=== PATIENT | female | born 1970 | race Hispanic/Latino ===

== ENCOUNTER 2018-02-26 18:14 | Emergency (ER) | payer OTHER ==
[~2018-02-26] VITALS: Ht 154.9 cm; Wt 82.6 kg
[~2018-02-26 18:14] MED LIST: HYDROCHLOROTHIA25 MG PO; LOSARTAN POTASS25 MG PR; METFORMIN HCL1000 MG PO; VICTOZA 2-0.6 MG/0.1
[2018-02-26 18:36] LABS: BASOPHILS % 0.4 % (0.0-1.0); EOSINOPHILS # (AUTO) 0.3 (0.0-0.4); EOSINOPHILS % 2.7 % (0.0-6.0); HEMATOCRIT 46.7 % (34.2-44.1); HEMOGLOBIN 15.3 g/dL (12.0-16.0); LYMPHOCYTES # (AUTO) 4.2 (1.0-3.2); LYMPHOCYTES % 42.9 % (18.0-39.1); MEAN CORPUSCULAR HEMOGLOBIN 28.2 pg (28-32); MEAN CORPUSCULAR HGB CONC 32.8 g/dL (31-35); MONOCYTES # (AUTO) 0.5 (0.2-0.8); MONOCYTES % 5.2 % (4.4-11.3); NEUTROPHILS # (AUTO) 4.8 (2.1-6.9); NEUTROPHILS % 48.5 % (38.7-80.0); PLATELET COUNT 225 x10e3/uL (140-360); RED BLOOD COUNT 5.43 x10e6/uL (3.6-5.1); RED CELL DISTRIBUTION WIDTH 12.7 % (11.7-14.4)
[2018-02-26 18:44] LABS: PARTIAL THROMBOPLASTIN TIME 25.1 seconds (23.8-35.5); PROTHROMBIN TIME 12.4 seconds (11.9-14.5)
[2018-02-26 18:55] LABS: ALANINE AMINOTRANSFERASE 40 IU/L (0-55); ALBUMIN 3.8 g/dL (3.5-5.0); ALBUMIN/GLOBULIN RATIO 1.1 (0.8-2.0); ALKALINE PHOSPHATASE 109 IU/L (40-150); ANION GAP 13.6 mmol/L (8-16); BLOOD UREA NITROGEN 11 mg/dL (7-26); BUN/CREATININE RATIO 14 (6-25); CALCIUM 9.8 mg/dL (8.4-10.2); CARBON DIOXIDE 28 mmol/L (22-29); CHLORIDE 99 mmol/L (98-107); CREATINE KINASE 51 IU/L (29-168); CREATININE, SERUM 0.79 mg/dL (0.57-1.11); EST GLOMERULAR FILTRATION RATE > 60 ML/MIN (60-); GLUCOSE 304 mg/dL (74-118); POTASSIUM 3.6 mmol/L (3.5-5.1); SODIUM 137 mmol/L (136-145)
[2018-02-26 19:15] LABS: BILIRUBIN,URINE NEGATIVE (NEGATIVE); CLARITY,URINE CLEAR (CLEAR); COLOR,URINE YELLOW (YELLOW); KETONES,URINE NEGATIVE (NEGATIVE); LEUKOCYTE ESTERASE ,URINE NEGATIVE (NEGATIVE); NITRITE,URINE NEGATIVE (NEGATIVE); PROTEIN,URINE DIPSTICK NEGATIVE (NEGATIVE); URINE UROBILINOGEN 0.2 mg/dL (0.2 - 1)
--- NOTE | 2018-02-26 19:43 | Diagnostic Imaging Report ---
EXAMINATION: Head CT without contrast. HISTORY:Left-sided numbness and weakness. COMPARISON:None. TECHNIQUE: Multidetector axial images were obtained from the foramen magnum to the vertex without contrast. The images were reconstructed using brain and bone algorithms. Thin section brain images were reformatted into coronal and sagittal planes. Intravenous contrast: None IMAGE QUALITY: Acceptable. FINDINGS: Skull/scalp: No lytic or blastic. lesions. No surgical changes. Parenchyma: No abnormal density. No acute hemorrhage, mass or acute major vascular territorial infarct. Arteries: No density suggestive of thrombosis. Dural sinuses: No abnormal density suggestive of thrombosis. Ventricles: No hydrocephalus or displacement. Extra-axial spaces: No abnormal density. Brain volume: Normal for age. Craniocervical junction: No mass, Chiari malformation, or basilar invagination. Sella: No mass. Paranasal/mastoid sinuses: Imaged portions unremarkable. IMPRESSION: No intracranial abnormality. Signed by: Dr. Jessica Landry M.D. on 02/26/2018 7:39 PM
[2018-02-26] MEDS ORDERED: INSULIN REGULAR, HUMAN 100 UNIT/1 ML 3ML VIAL SQ ONE (19:45)
--- NOTE | 2018-02-26 20:00 | Diagnostic Imaging Report ---
EXAMINATION: PA and lateral views of the chest. COMPARISON: None CLINICAL HISTORY: Left facial arm and leg weakness DISCUSSION: Lines/tubes: None. Lungs: The lungs are well inflated and clear. There is no evidence of pneumonia or pulmonary edema. Pleura: There is no pleural effusion or pneumothorax. Heart and mediastinum: Cardiomediastinal silhouette is unremarkable. Pulmonary vasculature is normal. Bones and soft tissues: No acute bony abnormalities. Degenerative changes in the thoracic spine IMPRESSION: No acute cardiopulmonary abnormalities. Signed by: Dr. Jose Vernon M.D. on 02/26/2018 7:56 PM
[2018-02-26 20:42] VITALS: BP 109/77
== END 2018-02-26 21:11 | disposition home or self-care (01) ==
LOC: ER 18:14
DX: R20.2 Paresthesia of skin (principal); R53.1 Weakness
CPT/HCPCS: 36415; 70450; 71046; 80053; 81001; 82550; 82553; 84484; 84702; 85025; 85610; 85730; 93005; 99284

== ENCOUNTER 2019-02-08 11:32 | Emergency (ER) | payer OTHER ==
[~2019-02-08] VITALS: Ht 154.9 cm; Wt 82.6 kg
--- OUTSIDE RECORDS SUMMARY | 2019-02-08 11:36 | XMS REPORT | Clinical Summary ---
Author Author SELIN Squrl [facility] Address Unknown Phone Unavailable Care Team Providers Care Hr Coordinator Name Role Phone Davida Rivera PCP Unavailable Allergies Comments Active Allergy Reactions Severity Noted Date dizziness Benazepril Hcl Other (See Low 09/12/2014 Comments) Pt developed itching on both arms, upper chest, tongue and lips after CT scan with contrast Iodine Itching Low 05/02/2017 cough Lisinopril Other (See Low 09/12/2014 Comments) Medications End Date Status Medication Sig Dispensed Refills Start Date Active losartan-hydrochlorothiaz Take 1 tablet 0 rodrigo (HYZAAR) 100-12.5 mg by mouth per tablet daily. Active cloNIDine HCl (CATAPRES) Take 0.2 mg 0 0.2 MG tablet by mouth 2 (two) times daily as needed . Active fluticasone (FLONASE) 50 1 spray by 0 mcg/actuation nasal spray Nasal route daily as needed . Active metFORMIN (GLUCOPHAGE) Take 1,000 mg 0 1000 MG tablet by mouth daily with breakfast . Active atorvastatin (LIPITOR) 40 Take 40 mg by 0 MG tablet mouth daily. Active liraglutide 0.6 mg/0.1 mL Inject 1.8 mg 0 (18 mg/3 mL) PnIj subcutaneousl y daily. Active insulin glargine Inject 60 0 (BASAGLAR KWIKPEN U-100 Units INSULIN) 100 unit/mL (3 subcutaneousl mL) InPnIndications: y 2 (two) Basagar insulin times daily. Active ticagrelor (BRILINTA) 90 Take 1 tablet 180 tablet 3 01/08/201 mg Tab tablet (90 mg total) 9 by mouth 2 (two) times daily. Active aspirin 81 MG EC tablet Take 1 tablet 90 tablet 3 (81 mg total) 9 by mouth daily. 01/08/2020 Active metoprolol (TOPROL-XL) 25 Take 1 tablet 90 tablet 3 MG 24 hr tablet (25 mg total) 9 by mouth daily. Active meloxicam (MOBIC) 15 MG Take 15 mg by 0 tablet mouth every 9 night as needed for Pain Take 0.5-1 tablets. Active linagliptin (TRADJENTA) 5 Take 5 mg by 0 mg Tab mouth daily. 8 Active traMADol (ULTRAM) 50 mg Take 50 mg by 0 tablet mouth every 6 7 (six) hours as needed. Active blood sugar diagnostic 1 each by 0 (GLUCOSE BLOOD) Strp Other - See 7 Admin Instructions route 2 (two) times daily. Active blood-glucose meter kit 1 each by 0 Other - See 7 Admin Instructions route 2 (two) times daily. Active pen needle, diabetic (BD Inject 1 0 ULTRA-FINE SHORT PEN applicator 8 NEEDLE) 31 gauge x 5/16" subcutaneousl Ndle y 2 (two) times daily. Active nitroglycerin (NITROSTAT) Place 0.3 mg 0 0.3 MG SL tablet under the 9 tongue as needed. 12/25/2018 Discontinued amLODIPine (NORVASC) 10 Take 20 mg by 0 MG tablet mouth daily. 12/25/2018 Discontinued insulin glargine (LANTUS) Inject 20 0 100 unit/mL injection Units subcutaneousl y nightly. Use as directed 12/25/2018 Discontinued glipiZIDE (GLUCOTROL) 5 Take 5 mg by 0 MG tablet mouth once in evening. 01/07/2019 Discontinued insulin glargine (LANTUS) Inject 60 0 100 unit/mL injection Units subcutaneousl y 2 (two) times daily Use as directed . 01/07/2019 Discontinued glipiZIDE (GLUCOTROL) 5 Take 1 tablet 30 tablet 1 MG tablet (5 mg total) 9 by mouth once in evening. 01/07/2019 Discontinued insulin detemir U-100 Inject 20 6 mL 0 (LEVEMIR) 100 unit/mL Units 9 injection subcutaneousl y nightly for 30 days. 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); Type 2 diabetes mellitus with hyperglycemia, with long-term current use of insulin ([facility]) 01/12/2019 Emergency Cardiology - 01/13/2019 01/12/2019 Travel Jack Nielsen MD L CATH & CORONARY ANGIOS 01/07/2019 Surgery Jack Nielsen MD Abnormal stress test (Primary Dx); 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); S/P drug eluting coronary stent placement; Chest pain, unspecified type 01/07/2019 Hospital Cardiology - Encounter 01/08/2019 Alex Minaya MD Pathak, Yashash D Asim, Amna, MD Chest pain, unspecified type (Primary Dx); Hypertension, unspecified type; History of diabetes mellitus 12/25/2018 Emergency Cardiology - 12/26/2018 12/25/2018 Orders Only General Internal Medicine 12/25/2018 Travel after 02/07/2018 Immunizations Name Dates Previously Given Next Due Influenza Three-TIV 05/23/2017, 06/20/2015, 07/05/2014 Non-PF 5+ YR Pneumococcal 02/07/2016 Polysaccharide (Pneumovax) Tdap 05/16/2014 Social History Date Tobacco Use Types Packs/Day Years Used Former Smoker Cigarettes Smokeless Tobacco: Never Used Comments: quit in 2008 Alcohol Use Drinks/Week oz/Week Comments Yes 1 Glasses of 0.6 socially wine Sex Assigned at Date Recorded Not on file Industry Job Start Date Occupation Not on file Not on file Not on file Travel End Travel History Travel Start No recent travel history available. Last Filed Vital Signs Time Taken Vital Sign Reading 01/13/2019 11:10 AM CDT Blood Pressure 111/76 01/13/2019 11:10 AM CDT Pulse 83 01/13/2019 11:10 AM CDT Temperature 36 C (96.8 F) 01/13/2019 11:10 AM CDT Respiratory Rate 18 01/13/2019 11:10 AM CDT Oxygen Saturation 95% - Inhaled Oxygen - Concentration 01/12/2019 10:44 PM CDT Weight 81.2 kg (179 lb) 01/12/2019 1:01 PM CDT Height 154.9 cm (5' 1") 01/12/2019 10:44 PM CDT Body Mass Index 33.82 Plan of Treatment Not on file Implants Device Identifier Shelf Expiration Date Model / Serial / Lot Implanted Type Area Manufactur 09/28/2020 [id number] / / Stent Synergy Mr [id number] [employer] [id number] - [id number] SCI:INTERV Implanted: Qty: 1 on 01/07/2019 by CARDIOLOGY Jack Nielsen MD Procedures Comments Procedure Name Priority Date/Time Associated Diagnosis VASCULAR DIAGRAM -SCAN 01/15/2019 12:12 PM CDT REPORT OF PROCEDURE - 01/14/2019 ENDOSCOPY SCAN 10:31 AM CDT REPORT OF PROCEDURE - 01/14/2019 ENDOSCOPY SCAN 10:31 AM CDT POCT-GLUCOSE METER Routine 01/13/2019 9:10 AM CDT TROPONIN I Routine 01/13/2019 8:03 AM CDT POCT-GLUCOSE METER Routine 01/12/2019 11:06 PM CDT TROPONIN I Routine 01/12/2019 9:54 PM CDT RAPID DRUG SCREEN, URINE Routine 01/12/2019 9:54 PM CDT ECG 12-LEAD Routine 01/12/2019 8:46 PM CDT POCT-GLUCOSE METER Routine 01/12/2019 8:31 PM CDT XR CHEST 2 VIEWS STAT 01/12/2019 1:37 PM CDT CBC W/PLT COUNT & AUTO STAT 01/12/2019 DIFFERENTIAL 1:17 PM CDT B-TYPE NATRIURETIC FACTOR STAT 01/12/2019 (BNP) 1:17 PM CDT TROPONIN I STAT 01/12/2019 1:17 PM CDT BASIC METABOLIC PANEL (7) STAT 01/12/2019 1:17 PM CDT CBC W/PLT COUNT & AUTO STAT 01/12/2019 DIFFERENTIAL 1:17 PM CDT PT/APTT STAT 01/12/2019 1:17 PM CDT ECG 12-LEAD Routine 01/12/2019 12:43 PM CDT Procedure Note - Interface, External Ris In - 01/12/2019 11:22 PM CDT Ventricula r Rate 111 BPM Atrial Rate 111 BPM P-R Interval 144 ms QRS Duration 82 ms Q-T Interval 354 ms QTC Calculatio n(Bazett) 481 ms P Hamer 52 degrees R Hamer 14 degrees T Hamer 80 degrees Sinus tachycardi a Otherwise normal ECG When compared with ECG of 9 21:20, No significan t change was found ECG 12-LEAD STAT 01/12/2019 12:43 PM CDT RHYTHM STRIP - SCAN 01/12/2019 11:01 AM CDT RHYTHM STRIP - SCAN 01/11/2019 2:33 PM CDT CARDIAC CATH REPORT - 01/11/2019 SCAN 2:33 PM CDT VASCULAR DIAGRAM -SCAN 01/11/2019 2:33 PM CDT REPORT OF PROCEDURE - 01/11/2019 ENDOSCOPY SCAN 2:33 PM CDT POCT-GLUCOSE METER Routine 01/08/2019 8:03 AM CDT CBC W/PLT COUNT & AUTO Routine 01/08/2019 DIFFERENTIAL 7:00 AM CDT BASIC METABOLIC PANEL (7) Routine 01/08/2019 7:00 AM CDT CBC W/PLT COUNT & AUTO Routine 01/08/2019 DIFFERENTIAL 7:00 AM CDT POCT-GLUCOSE METER Routine 01/07/2019 9:31 PM CDT ECG 12-LEAD Routine 01/07/2019 9:20 PM CDT ECG 12-LEAD Routine 01/07/2019 6:58 PM CDT POCT-GLUCOSE METER Routine 01/07/2019 6:31 PM CDT POCT-ACT Routine 01/07/2019 2:21 PM CDT PCI 01/07/2019 Abnormal stress test 12:20 PM CDT Case Notes POP6 L CATH & CORONARY ANGIOS 01/07/2019 Abnormal stress test 12:20 PM CDT Case Notes POP6 ECG 12-LEAD Routine 01/07/2019 11:08 AM CDT Procedure Note - Interface, External Ris In - 01/07/2019 11:16 AM CDT Ventricula r Rate 72 BPM Atrial Rate 72 BPM P-R Interval 162 ms QRS Duration 86 ms Q-T Interval 404 ms QTC Calculatio n(Bazett) 442 ms P Hamer 33 degrees R Hamer -6 degrees T Hamer 35 degrees Normal sinus rhythm with sinus arrhythmia Normal ECG When compared with ECG of -201 9 10:54, No significan t change was found ECG 12-LEAD Routine 01/07/2019 11:08 AM CDT CBC W/PLT COUNT & AUTO Routine 01/07/2019 DIFFERENTIAL 10:27 AM CDT PROTHROMBIN TIME/INR Routine 01/07/2019 10:27 AM CDT CBC W/PLT COUNT & AUTO Routine 01/07/2019 DIFFERENTIAL 10:27 AM CDT BASIC METABOLIC PANEL (7) Routine 01/07/2019 10:27 AM CDT RHYTHM STRIP - SCAN 12/30/2018 9:50 AM CDT REPORT OF PROCEDURE - 12/28/2018 ENDOSCOPY SCAN 11:00 AM CDT RHYTHM STRIP - SCAN 12/28/2018 11:00 AM CDT ECHOCARDIOGRAM REPORT - 12/26/2018 SCAN 9:22 PM CDT NM CARDIAC PET PERFUSION STAT 12/26/2018 REST AND/OR STRESS 1:19 PM CDT TREADMILL Routine 12/26/2018 TOLERANCE(NON-NUCLEAR 1:12 PM CDT TREADMILL) BASIC METABOLIC PANEL (7) Routine 12/26/2018 4:43 AM CDT POCT-GLUCOSE METER Routine 12/25/2018 10:18 PM CDT 2D ECHO W/ DOPPLER STAT 12/25/2018 (CW/PW/COLOR) 8:54 PM CDT TROPONIN I Routine 12/25/2018 7:[address] CHEST PE TEST DESIGN STAT 12/25/2018 3:08 PM CDT XR CHEST 1 VIEW STAT 12/25/2018 PORTABLE/BEDSIDE 12:44 PM CDT CBC W/PLT COUNT & AUTO STAT 12/25/2018 DIFFERENTIAL 12:32 PM CDT PT/APTT STAT 12/25/2018 12:32 PM CDT CBC W/PLT COUNT & AUTO STAT 12/25/2018 DIFFERENTIAL 12:32 PM CDT TROPONIN I STAT 12/25/2018 12:32 PM CDT B-TYPE NATRIURETIC FACTOR STAT 12/25/2018 (BNP) 12:32 PM CDT MAGNESIUM STAT 12/25/2018 12:32 PM CDT BASIC METABOLIC PANEL (7) STAT 12/25/2018 12:32 PM CDT ECG 12-LEAD Routine 12/25/2018 10:54 AM CDT Procedure Note - Interface, External Ris In - 12/25/2018 7:17 PM CDT Ventricula r Rate 95 BPM Atrial Rate 95 BPM P-R Interval 144 ms QRS Duration 82 ms Q-T Interval 376 ms QTC Calculatio n(Bazett) 472 ms P Hamer 28 degrees R Hamer -11 degrees T Hamer 46 degrees Normal sinus rhythm Normal ECG When compared with ECG of 6 18:39, No significan t change was found ECG 12-LEAD STAT 12/25/2018 10:54 AM CDT after 02/07/2018 Results * VASCULAR DIAGRAM -SCAN (01/15/2019 12:12 PM CDT) Only the most recent of 2 results within the time period is included. Narrative Performed At * EKG-SCANNED (01/14/2019 10:31 AM CDT) Only the most recent of 4 results within the time period is included. Narrative Performed At * POC-Glucose meter (01/13/2019 9:10 AM CDT) Only the most recent of 7 results within the time period is included. POC-Glucose Meter 209 (H)Comment: TESTED AT 70 - 110 mg/dL [address] [address] Specimen Blood Performing Organization Address City/[facility] Phone Number [address] [address] [facility] * Troponin I (01/13/2019 8:03 AM CDT) Only the most recent of 5 results within the time period is included. Troponin I <0.01 0.00 - 0.03 ng/mL [facility] Specimen Blood Narrative Performed At Troponin I (TnI) levels must be interpreted in the context of the presenting [facility] symptoms and the clinical findings. Elevated TnI levels indicate myocardial [facility] damage, but are not specific for ischemic heart disease. Elevated TnI levels are seen in patients with other cardiac conditions (including myocarditis and congestive heart failure), and slight TnI elevations occur in patients with other conditions, including sepsis, renal failure, acidosis, acute neurological disease, and persistent tachyarrhythmia. Performing Organization Address City/[facility] Phone Number [address] [phone] [facility] * Rapid drug screen, urine (01/12/2019 9:54 PM CDT) Barbiturate Screen Negative Negative [facility] Benzodiazepine Screen Negative Negative [facility] Cocaine (Metab.) Screen Negative Negative [facility] Methadone Screen Negative Negative [facility] Opiate Screen Negative Negative [facility] Cannabinoid Screen Negative Negative [facility] Amph/Methamph Screen Negative Negative [facility] Phencyclidine Screen Negative Negative [facility] Oxycodone Screen Negative Negative [facility] Specimen Urine Narrative Performed At [facility] Cocaine 300 ng/mL [facility] Eiahhlyprxg35 ng/mL Uulmssdciyctvw554 ng/mL Barbiturate 200 ng/mL Wyeksfdneqndm04 ng/mL Ibgxeb346 ng/mL Methadone 300 ng/mL Amphetamine/ 1000 ng/mL Methamphetamine Oxycodone 300 ng/mL This assay provides an unconfirmed qualitative test result for the clinical management of patients in emergency situations. Chain of custody not maintained. Some anlc-ehj-blaajxo medications, as well as adulterants, may cause inaccurate results. Clinical correlation should be applied. A more comprehensive drug screen or confirmation of a detected drug may be performed upon request. Performing Organization Address City/State/Zipcode Phone Number [facility] [address] [place] [address] [facility] * ECG 12 lead (01/12/2019 8:46 PM CDT) Only the most recent of 6 results within the time period is included. Specimen Narrative Performed At Ventricular Rate 93 BPM GE MUSE Atrial Rate 93 BPM P-R Interval 158 ms QRS Duration 86 ms Q-T Interval 390 ms QTC Calculation(Bazett) 484 ms P Hamer 36 degrees R Hamer -21 degrees T Hamer 49 degrees Normal sinus rhythm Prolonged QT Abnormal ECG When compared with ECG of 12-JAN-2019 12:43, No significant change was found Confirmed by MD Patterson Roberto ([id number]) on 01/14/2019 10:02:07 AM Procedure Note Interface, External Ris In - 01/14/2019 10:02 AM CDT Ventricular Rate 93 BPM Atrial Rate 93 BPM P-R Interval 158 ms QRS Duration 86 ms Q-T Interval 390 ms QTC Calculation(Bazett) 484 ms P Hamer 36 degrees R Hamer -21 degrees T Hamer 49 degrees Normal sinus rhythm Prolonged QT Abnormal ECG When compared with ECG of 12-JAN-2019 12:43, No significant change was found Confirmed by MD Leonardo, James ([id number]) on 01/14/2019 10:02:07 AM Performing Organization Address City/[facility]/Zipcode Phone Number [employer] MUSE * XR chest 2 views (01/12/2019 1:37 PM CDT) Specimen Narrative Performed At FINAL REPORT GE [employer] Chest, 2 views. Clinical History: CHEST PAIN EMESIS Comparison Study: December 25, 2018 Findings:The heart and lungs are within normal limits.The pleural spaces are clear.No significant bony or soft tissue abnormalities are seen. Impression: No active cardiopulmonary disease. Signed: Rodrick Medina MD Report Verified Date/Time:01/12/2019 14:32:20 Reading Location: [address] Consult Reading Room Procedure Note Interface, External Ris In - 01/12/2019 2:34 PM CDT FINAL REPORT Chest, 2 views. Clinical History: CHEST PAIN EMESIS Comparison Study: December 25, 2018 Findings: The heart and lungs are within normal limits. The pleural spaces are clear. No significant bony or soft tissue abnormalities are seen. Impression: No active cardiopulmonary disease. Signed: Rodrick Medina MD Report Verified Date/Time: 01/12/2019 14:32:20 Reading Location: [facility] [id number] Consult Reading Room Performing Organization Address City/[facility] Phone Number [facility] RIS * PT/aPTT (01/12/2019 1:17 PM CDT) Only the most recent of 2 results within the time period is included. Protime 12.1 11.7 - 14.7 seconds [facility] INR 0.9 <=5.9 [facility] PTT 24.3 22.5 - 36.0 seconds [facility] Specimen Blood Narrative Performed At RECOMMENDED COUMADIN/WARFARIN INR THERAPY RANGES [facility] STANDARD DOSE: 2.0 - 3.0 Includes: PROPHYLAXIS for venous thrombosis, [facility] systemic embolization; TREATMENT for venous thrombosis and/or pulmonary embolus. HIGH RISK: Target INR is 2.5-3.5 for patients with mechanical heart valves. Performing Organization Address City/State/Zipcode Phone Number [facility] [address] [place] [address] [facility] * CBC with platelet count + automated diff (01/12/2019 1:17 PM CDT) Only the most recent of 4 results within the time period is included. WBC 12.0 (H) 3.5 - 10.5 K/L [facility] RBC 5.66 (H) 3.93 - 5.22 M/L [facility] Hemoglobin 16.0 (H) 11.2 - 15.7 GM/DL [facility] Hematocrit 48.7 (H) 34.1 - 44.9 % [facility] MCV 86.0 79.4 - 94.8 fL [facility] MCH 28.3 25.6 - 32.2 pg [facility] MCHC 32.9 32.2 - 35.5 GM/DL [facility] RDW 12.8 11.7 - 14.4 % [facility] Platelets 321 150 - 450 K/CU MM [facility] MPV 12.1 9.4 - 12.3 fL [facility] nRBC 0 0 - 0 /100 WBC [facility] % Neutros 72 % [facility] % Lymphs 23 % [facility] % Monos 4 % [facility] % Eos 1 % [facility] % Baso 0 % [facility] # Neutros 8.64 (H) 1.56 - 6.13 K/L [facility] # Lymphs 2.72 1.18 - 3.74 K/L [facility] # Monos 0.43 (H) 0.24 - 0.36 K/L [facility] # Eos 0.14 0.04 - 0.36 K/L [facility] # Baso 0.04 0.01 - 0.08 K/L [facility] Immature 0 0 - 1 % [facility] Granulocytes-[facility] Specimen Blood Performing Organization Address City/State/[place] [address] [phone] [place] [address] * B-type Natriuretic Factor (BNP) (01/12/2019 1:17 PM CDT) Only the most recent of 2 results within the time period is included. BNP <10 0 - 100 pg/mL [facility] Specimen Blood Performing Organization Address City/State/[place] [address] [phone] [place] [address] * Basic Metabolic Panel (01/12/2019 1:17 PM CDT) Only the most recent of 5 results within the time period is included. Sodium 137 136 - 145 meq/L [facility] Potassium 4.3 3.5 - 5.1 meq/L [facility] Chloride 101 98 - 107 meq/L [facility] CO2 28 22 - 29 meq/L [facility] BUN 19 7 - 21 mg/dL [facility] Creatinine 0.81 0.57 - 1.25 mg/dL [facility] Glucose 174 (H) 70 - 105 mg/dL [facility] Calcium 10.0 8.4 - 10.2 mg/dL [facility] EGFR 76Comment: ESTIMATED GFR IS mL/min/1.[address] [facility] NOT ACCURATE CREATININE [facility] CLEARANCE IN PREDICTING GLOMERULAR FILTRATION RATE. ESTIMATED GFR IS NOT APPLICABLE FOR DIALYSIS PATIENTS. Specimen Blood Performing Organization Address City/[facility]/[place] [address] [phone] [place] [address] * RHYTHM STRIP - SCAN (01/12/2019 11:01 AM CDT) Only the most recent of 4 results within the time period is included. Narrative Performed At * CARDIAC CATH REPORT - SCAN (01/11/2019 2:33 PM CDT) Narrative Performed At * POC ACTIVATED CLOTTING TIME (01/07/2019 2:21 PM CDT) Activated Clotting Time 412Comment: TESTED AT [facility] sec [address] Specimen Blood Performing Organization Address [facility] [place] [place] [address] [phone] [place] [address] * Prothrombin time/INR (01/07/2019 10:27 AM CDT) Protime 12.3 11.7 - 14.7 seconds [facility] INR 0.9 <=5.9 [facility] Specimen Blood Narrative Performed At RECOMMENDED COUMADIN/WARFARIN INR THERAPY RANGES [facility] STANDARD DOSE: 2.0 - 3.0 Includes: PROPHYLAXIS for venous thrombosis, [facility] systemic embolization; TREATMENT for venous thrombosis and/or pulmonary embolus. HIGH RISK: Target INR is 2.5-3.5 for patients with mechanical heart valves. Performing Organization Address City/State/[place] [address] [facility] * ECHOCARDIOGRAM REPORT - SCAN (12/26/2018 9:22 PM CDT) Narrative Performed At * NM myocardial perfusion PET (rest and stress) (12/26/2018 1:19 PM CDT) Specimen Narrative Performed At FINAL REPORT [facility] PROCEDURE: MYOCARDIAL PERFUSION PET IMAGING (Rest/Stress) CPT CODE: 86439 INDICATION: Chest pain CARDIOVASCULAR PROFILE: Symptoms: Chest pain CAD History: Not documented Risk Factors: Diabetes mellitus, hypertension, smoker, lipid abnormality, family history of CAD BMI:33.9 Medications: Norvasc, Catapres, losartan, hydrochlorothiazide, atorvastatin STRESS PROTOCOL: Pharmacologic stress was achieved with a 10-second intravenous infusion of regadenoson 0.4 mg. IMAGING PROTOCOL: Limited low-dose CT imaging was performed for attenuation correction. 40.1 mCi of Rb-82 chloride was injected intravenously at rest, and PET images were obtained. Then, 40.1 mCi of Rb-82 chloride was injected intravenously at peak stress, and PET images were obtained. REST FINDINGS: HR: 74 /min BP: 112/53 mmHg Prelim. EKG: Normal sinus rhythm. Perfusion: Mild small apical anteroseptal area of decreased intensity. Wall Motion: Normal (LVEF 62%). LV Volume: Normal. RV Volume: Normal. STRESS FINDINGS: HR: 109 /min (62% of MPHR) BP: 101/78 mmHg Prelim. EKG: No ischemic changes. Symptoms: None (treatment not required). Perfusion: Mild small apical anteroseptal area of decreased intensity. . Wall Motion: Normal (LVEF 68%). LV Volume: Unchanged from rest. IMPRESSION: 1. Probably normal study. Suspicious myocardial perfusion. There is aMild small apical anteroseptal area of decreased intensity. 1. Normal global LV function, which does not deteriorate with stress. 2. Normal extracardiac tracer distribution. 3. Low-risk findings. 4. The prior study dated 09/07/2014 was normal Signed: Fahad Barakat MD Report Verified Date/Time:12/26/2018 15:10:13 Procedure Note Interface, External Ris In - 12/26/2018 3:12 PM CDT FINAL REPORT PROCEDURE: MYOCARDIAL PERFUSION PET IMAGING (Rest/Stress) CPT CODE: 93189 INDICATION: Chest pain CARDIOVASCULAR PROFILE: Symptoms: Chest pain CAD History: Not documented Risk Factors: Diabetes mellitus, hypertension, smoker, lipid abnormality, family history of CAD BMI:33.9 Medications: Norvasc, Catapres, losartan, hydrochlorothiazide, atorvastatin STRESS PROTOCOL: Pharmacologic stress was achieved with a 10-second intravenous infusion of regadenoson 0.4 mg. IMAGING PROTOCOL: Limited low-dose CT imaging was performed for attenuation correction. 40.1 mCi of Rb-82 chloride was injected intravenously at rest, and PET images were obtained. Then, 40.1 mCi of Rb-82 chloride was injected intravenously at peak stress, and PET images were obtained. REST FINDINGS: HR: 74 /min BP: 112/53 mmHg Prelim. EKG: Normal sinus rhythm. Perfusion: Mild small apical anteroseptal area of decreased intensity. Wall Motion: Normal (LVEF 62%). LV Volume: Normal. RV Volume: Normal. STRESS FINDINGS: HR: 109 /min (62% of MPHR) BP: 101/78 mmHg Prelim. EKG: No ischemic changes. Symptoms: None (treatment not required). Perfusion: Mild small apical anteroseptal area of decreased intensity. . Wall Motion: Normal (LVEF 68%). LV Volume: Unchanged from rest. IMPRESSION: 1. Probably normal study. Suspicious myocardial perfusion. There is aMild small apical anteroseptal area of decreased intensity. 1. Normal global LV function, which does not deteriorate with stress. 2. Normal extracardiac tracer distribution. 3. Low-risk findings. 4. The prior study dated 09/07/2014 was normal Signed: Fahad Barakat MD Report Verified Date/Time: 12/26/2018 15:10:13 Performing Organization Address City/State/Zipcode Phone Number GE RIS * Treadmill tolerance(Non-Nuclear Treadmill) (12/26/2018 1:12 PM CDT) Specimen Narrative Performed At Protocol Name [employer]on [employer] Time In Exercise Phase 00:01:00 Max. Systolic BP 101 mmHg Max Diastolic BP 78 mmHg Max Heart Rate 109 BPM Max Predicted Heart Rate 174 BPM Reason For Termination Predetermined end point Reason for Test Chest Pain Target HR Formula (220 - Age)*100% Arrhythmias none Resting ECG Normal sinus rhythm ST Changes No Significant Changes Overall Impression Indeterminate due to pharmacological stress Chest Pain Mild CP immediately post Lexiscan HR Response To Exercise BP Response To Exercise NORVASC CATAPRES Losartan/HCTZ Atorvastatin Confirmed by fellow Anshul Boucher ([id number]) on 12/28/2018 8:05:20 AM Confirmed by MD GILMAN JORGE [id number]) on 01/12/2019 4:14:02 PM Procedure Note Interface, External Ris In - 01/12/2019 4:16 PM CDT Protocol Name Regdarrel Time In Exercise Phase 00:01:00 Max. Systolic BP 101 mmHg Max Diastolic BP 78 mmHg Max Heart Rate 109 BPM Max Predicted Heart Rate 174 BPM Reason For Termination Predetermined end point Reason for Test Chest Pain Target HR Formula (220 - Age)*100% Arrhythmias none Resting ECG Normal sinus rhythm ST Changes No Significant Changes Overall Impression Indeterminate due to pharmacological stress Chest Pain Mild CP immediately post Lexiscan HR Response To Exercise BP Response To Exercise NORVASC CATAPRES Losartan/HCTZ Atorvastatin Confirmed by fellow Anshul Boucher ([id number]) on 12/28/2018 8:05:20 AM Confirmed by MD GILMAN JORGE ([id number]) on 01/12/2019 4:14:02 PM Performing Organization Address City/State/Zipcode Phone Number GE MUSE * 2D Echo W/Doppler(CW/PW/Color) (12/25/2018 8:54 PM CDT) Ejection Fraction [facility] ECHO HEARTLAB [facility] Specimen Narrative Performed At Transthoracic Echocardiography Report (TTE) [facility] ECHO HEARTLAB Demographics [facility] Patient NameKEYANNA YANES Date of Study12/25/2018 LALITHA Gender Female Visit [id number] Race Unknown [id number] Number Date of 1970 Referring Physician Age 48 year(s) SonographerFransico Ravi Interpreting Kim Dinh, Physician FellowBRENT Zamarripa Procedure Type of Study TTE procedure:2DECHO W DOPPLER(CW/PW/COLOR) (STAT) Indications:Shortness of breath. Clinical History HGB 16.4 HCT 51.0 % HTN, DM Contrast Medium: Definity. Amount - 2 ml Height: 61 inches Weight: 81.19 kg (179 lbs) BSA: 1.8 m^2 BMI: 33.82 kg/m^2 HR: 83 bpm BP: 105/70 mmHg Summary 1. All of the LV segments contract normally . LVEF by Deutsch's method of disk assessment is normal (>60%) . 2. The right ventricular chamber size and systolic function are within normal limits. 3. LA size is normal . Previous Study No prior studies available for comparison. Signature Findings Rhythm/BPRegular sinus rhythm during the exam. Left Ventricle LV endocardium is adequately visualized with IV ultrasound enhancing agent. The left ventricle is chamber size (by vol index) is normal. Normal LV wall thickness. All of the LV segments contract normally . LVEF by Deutsch's method of disk assessment is normal (>60%) . Grade 1 diastolic dysfunction (impaired relaxation and low-normal LA pressure). Left AtriumLA size is normal . Right VentricleThe right ventricular chamber size and systolic function are within normal limits. Right Atrium RA size is probably normal based on available views. Aortic Valve Is not well visualized though in limited views appears normal. No significant stenosis or insufficiency by doppler. Mitral Valve Not well visualized, though no severe pathology is appreciated in limited views and doppler. Tricuspid ValveTV structure is normal. Estimated peak systolic PA pressure is cannot be determined due to inadequate TR velocity signal . Pulmonic Valve Normal PV structure and function by limited views and Doppler. AortaAortic root size (SInus of Valsalva diameter) is normal . PericardiumNo significant pericardial effusion is visualized. An echo lucent space is noted consistent with prominent pericardial fat pad. IVC/SVC/PA/PV/PleuralThe estimated RA pressure by IVC dynamics 5-10mmHg . Chambers/Structures Left Atrium LA Volume: 28.96 ml LA Area: 12.38 cm^2 LA Vol. Index: 16 ml/m^2 Left Ventricle LVIDd: 3.94 cmLVEDV:63.1 2 ml LVIDs: 2.55 cm LV Septum Diastolic: 0.96 cm LV PW Diastolic: 1.07 cmLV FS: 35.3 % LVEDV Deutsch's:82.2 ml LVESV Deutsch's:23.04 mlLVEDVI: 46 ml/m^2 LVEF Deutsch's: 72 %LVESVI: 13 ml/m^2 LVOT Diameter: 2.16 cm Aorta Ao Root S of Mima.: 2.79 cm Doppler/Quantitative Measurements Mitral Valve MV Peak E-Wave: 0.53 m/s MV Peak A-Wave: 0.7 m/s E/A Ratio: 0.76 Peak Gradient: 1.12 mmHg Decelera tion Time: 249.7 msec MV Justin. Peak: Aortic Valve Peak Velocity: 1.47 m/sMean Velocity: 1 m/s Peak Gradient: 8.61 mmHg Mean Gradient: 4.59 mmHg AV Area (continuity): 3.66 cm^2 AV VTI: 23.76 cm AV DVI: 1 LVOT Peak Velocity: 1.35 m/s Peak Gradient: 7.25 mmHg Mean Velocity: 0.81 m/s Mean Gradient: 3.41 mmHg LVOT Diameter: 2.16 cmLVOT VTI: 23.76 cm LVOT Area: 3.66 cm^2LVOT SV:87.02 ml LVOT CO: 7.22 l/min LVOT CI: 4.01 l/min/m^2 Procedure Note Interface, External Ris In - 12/26/2018 2:13 PM CDT Transthoracic Echocardiography Report (TTE) Demographics Patient Name KEYANNA YANES Date of Study 12/25/2018 LALITHA Gender Female Visit Number [id number] Race Unknown Room Number 1134 Number Date of 1970 Referring Physician Age 48 year(s) [employer] Fransico Ravi Interpreting Kim Dinh, Physician MD Fellow BRENT Zamarripa Procedure Type of Study TTE procedure:2DECHO W DOPPLER(CW/PW/COLOR) (STAT) Indications:Shortness of breath. Clinical History HGB 16.4 HCT 51.0 % HTN, DM Contrast Medium: Definity. Amount - 2 ml Height: 61 inches Weight: 81.19 kg (179 lbs) BSA: 1.8 m^2 BMI: 33.82 kg/m^2 HR: 83 bpm BP: 105/70 mmHg Summary 1. All of the LV segments contract normally . LVEF by Deutsch's method of disk assessment is normal (>60%) . 2. The right ventricular chamber size and systolic function are within normal limits. 3. LA size is normal . Previous Study No prior studies available for comparison. Signature Findings Rhythm/BP Regular sinus rhythm during the exam. Left Ventricle LV endocardium is adequately visualized with IV ultrasound enhancing agent. The left ventricle is chamber size (by vol index) is normal. Normal LV wall thickness. All of the LV segments contract normally . LVEF by Deutsch's method of disk assessment is normal (>60%) . Grade 1 diastolic dysfunction (impaired relaxation and low-normal LA pressure). Left Atrium LA size is normal . Right Ventricle The right ventricular chamber size and systolic function are within normal limits. Right Atrium RA size is probably normal based on available views. Aortic Valve Is not well visualized though in limited views appears normal. No significant stenosis or insufficiency by doppler. Mitral Valve Not well visualized, though no severe pathology is appreciated in limited views and doppler. Tricuspid Valve TV structure is normal. Estimated peak systolic PA pressure is cannot be determined due to inadequate TR velocity signal . Pulmonic Valve Normal PV structure and function by limited views and Doppler. Aorta Aortic root size (SInus of Valsalva diameter) is normal . Pericardium No significant pericardial effusion is visualized. An echo lucent space is noted consistent with prominent pericardial fat pad. IVC/SVC/PA/PV/Pleural The estimated RA pressure by IVC dynamics 5-10mmHg . Chambers/Structures Left Atrium LA Volume: 28.96 ml LA Area: 12.38 cm^2 LA Vol. Index: 16 ml/m^2 Left Ventricle LVIDd: 3.94 cm LVEDV:63.12 ml LVIDs: 2.55 cm LV Septum Diastolic: 0.96 cm LV PW Diastolic: 1.07 cm LV FS: 35.3 % LVEDV Deutsch's:82.2 ml LVESV Deutsch's:23.04 ml LVEDVI: 46 ml/m^2 LVEF Deutsch's: 72 % LVESVI: 13 ml/m^2 LVOT Diameter: 2.16 cm Aorta Ao Root S of Mima.: 2.79 cm Doppler/Quantitative Measurements Mitral Valve MV Peak E-Wave: 0.53 m/s MV Peak A-Wave: 0.7 m/s E/A Ratio: 0.76 Peak Gradient: 1.12 mmHg Deceleration Time: 249.7 msec MV Justin. Peak: Aortic Valve Peak Velocity: 1.47 m/s Mean Velocity: 1 m/s Peak Gradient: 8.61 mmHg Mean Gradient: 4.59 mmHg AV Area (continuity): 3.66 cm^2 AV VTI: 23.76 cm AV DVI: 1 LVOT Peak Velocity: 1.35 m/s Peak Gradient: 7.25 mmHg Mean Velocity: 0.81 m/s Mean Gradient: 3.41 mmHg LVOT Diameter: 2.16 cm LVOT VTI: 23.76 cm LVOT Area: 3.66 cm^2 LVOT SV:87.02 ml LVOT CO: 7.22 l/min LVOT CI: 4.01 l/min/m^2 Performing Organization Address City/State/[facility] Cent[facility] Phone Number [facility] * CT chest PE test design (12/25/2018 3:08 PM CDT) Specimen Narrative Performed At FINAL REPORT [facility] INDICATION: Acute chest pain. COMPARISON: Chest radiographs December 25, 2018 and March 22, 2016 TECHNIQUE: Chest CT exam WITH intravenous contrast, PE protocol. The exam was performed according to our department dose-optimization protocol, which includes automated exposure control, adjustments of mA and kV according to patient size. Iterative reconstructions are also sometimes employed. FINDINGS: No pulmonary embolus is demonstrated. Pulmonary arteries are evaluated to the segmental level. Main pulmonary artery is normal in caliber. No dissection of the thoracic aorta is demonstrated; the ascending thoracic aorta is normal evaluated because of cardiac motion. No atherosclerosis of the thoracic aorta and the thoracic aorta is normal in caliber. Heart is normal in size and there is no pericardial effusion. No pneumothorax, pleural effusion, pneumonia, or pulmonary edema is demonstrated. Central airways are clear. No mediastinal or hilar lymphadenopathy is demonstrated. Esophagus and upper abdomen are unremarkable. Mid thoracic vertebral bony hypertrophic changes present without suspicious osseous lesion. IMPRESSION: No pulmonary embolism (or other explanation for the patient's acute chest pain). Signed: Steve Salguero MD Report Verified Date/Time:12/25/2018 15:28:47 Reading Location: [facility] B1 C013Y CT Body Reading Room Procedure Note Interface, External Ris In - 12/25/2018 3:30 PM CDT FINAL REPORT INDICATION: Acute chest pain. COMPARISON: Chest radiographs December 25, 2018 and March 22, 2016 TECHNIQUE: Chest CT exam WITH intravenous contrast, PE protocol. The exam was performed according to our department dose-optimization protocol, which includes automated exposure control, adjustments of mA and kV according to patient size. Iterative reconstructions are also sometimes employed. FINDINGS: No pulmonary embolus is demonstrated. Pulmonary arteries are evaluated to the segmental level. Main pulmonary artery is normal in caliber. No dissection of the thoracic aorta is demonstrated; the ascending thoracic aorta is normal evaluated because of cardiac motion. No atherosclerosis of the thoracic aorta and the thoracic aorta is normal in caliber. Heart is normal in size and there is no pericardial effusion. No pneumothorax, pleural effusion, pneumonia, or pulmonary edema is demonstrated. Central airways are clear. No mediastinal or hilar lymphadenopathy is demonstrated. Esophagus and upper abdomen are unremarkable. Mid thoracic vertebral bony hypertrophic changes present without suspicious osseous lesion. IMPRESSION: No pulmonary embolism (or other explanation for the patient's acute chest pain). Signed: Steve Salguero MD Report Verified Date/Time: 12/25/2018 15:28:47 Reading Location: [facility] B1 C013Y CT Body Reading Room Performing Organization Address City/State/Zipcode Phone Number GE RIS * XR chest 1 view portable/bedside (12/25/2018 12:44 PM CDT) Specimen Narrative Performed At FINAL REPORT [facility] RIS Chest, AP view. History: Chest pain. Comparison: 03/22/2016. Discussion:The cardiomediastinal silhouette and pulmonary vasculature are within normal limits. The lungs are clear without evidence of consolidation or effusion.There are no acute osseous abnormalities. The soft tissues are unremarkable. IMPRESSION: No acute cardiopulmonary abnormality. Signed: Mandi Linn MD Report Verified Date/Time:12/25/2018 12:51:31 Reading Location: [address] Radiology Reading Room Procedure Note Interface, External Ris In - 12/25/2018 12:54 PM CDT FINAL REPORT Chest, AP view. History: Chest pain. Comparison: 03/22/2016. Discussion: The cardiomediastinal silhouette and pulmonary vasculature are within normal limits. The lungs are clear without evidence of consolidation or effusion. There are no acute osseous abnormalities. The soft tissues are unremarkable. IMPRESSION: No acute cardiopulmonary abnormality. Signed: Mandi Linn MD Report Verified Date/Time: 12/25/2018 12:51:31 Reading Location: [address] Radiology Reading Room Performing Organization Address [facility] Phone Number GE RIS * Magnesium (12/25/2018 12:32 PM CDT) Magnesium 1.9 1.6 - 2.6 mg/dL [facility] [place] Specimen Blood Performing Organization Address City/State/Zipcode Phone Number [facility] [address] [place] [address] MEDICAL [facility]ENTER after 02/07/2018 Insurance Payer Benefit Subscriber ID Type Phone Address Plan / Group [facility] [place] HMO xxxxxxxxx HMO/POS CARE POS SELECT CHOICE Advance Directives For more information, please contact: [facility] [address] [place] [address] Date Inactivated Comments Code Status Date Activated 01/13/2019 3:58 PM Partial Code 01/12/2019 3:54 PM This code status was determined by: Patient Drug Protocol After Arrest Occurs? No Mechanical Ventilation with Intubation? No Bag/Mask? Yes Internal/External Pacemaker? Yes Transfer to Critical Care? Yes Chest Compressions? No Defibrillation/Cardioversion? No 01/08/2019 2:45 PM Full Code 01/07/2019 3:21 PM This code status was determined by: Patient 12/26/2018 10:05 PM Full Code 12/25/2018 4:31 PM This code status was determined by: Patient
--- NOTE | 2019-02-08 12:46 | NUR ---
Patient refusing sling
--- NOTE | 2019-02-08 13:10 | Diagnostic Imaging Report ---
FOREARM LEFT 2 VIEW - 2 views HISTORY: Pain. Injured the left elbow and forearm. COMPARISON: None available. FINDINGS: Bones: No acute displaced fracture. Osseous alignment is within normal limits. Joints: The joint spaces are well-maintained. Soft tissues: The soft tissues appear unremarkable. Bracelet overlying the left wrist. IMPRESSION: No acute radiographic abnormality. Signed by: Dr. Genaro Bell M.D. on 02/08/2019 1:06 PM
== END 2019-02-08 12:53 | disposition home or self-care (01) ==
LOC: ER 11:32
DX: S50.12XA Contusion of left forearm, initial encounter (principal); W22.8XXA Striking against or struck by other objects, initial encounter; Y93.89 Activity, other specified
CPT/HCPCS: 99283